=== PATIENT | female | born 1975 | race Caucasian/White ===

== ENCOUNTER → 2017-01-21 | Outpatient (CLI) | payer MEDICAID ==
[2014-04-04 09:03] VITALS: BP 109/67
[~2017-01-21] MED LIST: ENOX40DI SQ; PROP40TA PO; WARF7.5T48 PO
[2017-01-21 12:43] LABS: ALBUMIN 3.8 g/dL (3.4-5.0); ALBUMIN/GLOBULIN RATIO 1.1 (1.0-1.7); CALCIUM 8.9 mg/dL (8.5-10.1); CREATININE 0.8 mg/dL (0.6-1.0); GFR 79.9; POTASSIUM 3.9 mmol/L (3.5-5.1); TOTAL BILIRUBIN 0.4 mg/dL (0.2-1.0); TOTAL PROTEIN 7.4 g/dL (6.4-8.2)
[2017-01-22 05:16] LABS: HEMOGLOBIN A1C 4.6 % (4.8-5.6)
[2017-01-22 11:47] LABS: THYROID STIM HORMONE (TSH) 0.667 uIU/mL (0.358-3.740)
== END | disposition home or self-care (01) ==
LOC: LAB 11:46
PROVIDERS: ATTEND Nurse Practitioner
DX: E78.1 Pure hyperglyceridemia (principal); Z79.899 Other long term (current) drug therapy
CPT/HCPCS: 36415; 80053; 80061; 83036; 84443

== ENCOUNTER → 2017-05-25 | Outpatient (CLI) | payer MEDICAID, OTHER ==
[2014-04-04 09:03] VITALS: BP 109/67
== END | disposition home or self-care (01) ==
LOC: LAB 14:25
PROVIDERS: ATTEND Nurse Practitioner
DX: Z79.01 Long term (current) use of anticoagulants (principal)
CPT/HCPCS: 36415; 85610

== ENCOUNTER → 2017-08-10 | Outpatient (CLI) | payer OTHER ==
[2014-04-04 09:03] VITALS: BP 109/67
== END | disposition home or self-care (01) ==
LOC: LAB 12:10
PROVIDERS: ATTEND Nurse Practitioner
DX: Z51.81 Encounter for therapeutic drug level monitoring (principal); E78.1 Pure hyperglyceridemia; Z79.01 Long term (current) use of anticoagulants
CPT/HCPCS: 36415; 85610

== ENCOUNTER → 2017-11-02 | Outpatient (CLI) | payer OTHER ==
[2014-04-04 09:03] VITALS: BP 109/67
[2017-11-02 09:30] LABS: ALBUMIN 3.6 g/dL (3.4-5.0); CALCIUM 8.8 mg/dL (8.5-10.1); CREATININE 0.8 mg/dL (0.6-1.0); GFR 79.4; POTASSIUM 3.9 mmol/L (3.5-5.1); TOTAL BILIRUBIN 0.3 mg/dL (0.2-1.0); TOTAL PROTEIN 7.2 g/dL (6.4-8.2)
== END | disposition home or self-care (01) ==
LOC: LAB 08:44
PROVIDERS: ATTEND Nurse Practitioner
DX: E78.5 Hyperlipidemia, unspecified (principal); E78.1 Pure hyperglyceridemia; Z95.2 Presence of prosthetic heart valve
CPT/HCPCS: 36415; 80053; 80061

== ENCOUNTER → 2020-03-03 | Outpatient (CLI) | payer OTHER ==
[2014-04-04 09:03] VITALS: BP 109/67
== END ==
LOC: LAB 11:56
PROVIDERS: ATTEND Nurse Practitioner
DX: Z51.81 Encounter for therapeutic drug level monitoring (principal); Z79.01 Long term (current) use of anticoagulants
CPT/HCPCS: 36415; 85610

== ENCOUNTER → 2020-06-05 | Outpatient (CLI) | payer OTHER ==
[2014-04-04 09:03] VITALS: BP 109/67
== END ==
LOC: LAB 08:48
PROVIDERS: ATTEND Nurse Practitioner
DX: I35.9 Nonrheumatic aortic valve disorder, unspecified (principal); Z95.2 Presence of prosthetic heart valve
CPT/HCPCS: 36415; 85610

== ENCOUNTER → 2020-07-08 | Outpatient (CLI) | payer OTHER ==
[2014-04-04 09:03] VITALS: BP 109/67
[2020-07-08 15:31] LABS: ALBUMIN 3.7 g/dL (3.4-5.0); CALCIUM 8.7 mg/dL (8.5-10.1); CREATININE 0.8 mg/dL (0.6-1.0); GFR 78.7; POTASSIUM 4.2 mmol/L (3.5-5.1); TOTAL BILIRUBIN 0.4 mg/dL (0.2-1.0); TOTAL PROTEIN 7.3 g/dL (6.4-8.2)
== END ==
LOC: LAB 14:47
PROVIDERS: ATTEND Nurse Practitioner
DX: E78.2 Mixed hyperlipidemia (principal)
CPT/HCPCS: 36415; 80053; 80061

== ENCOUNTER → 2020-08-05 | Outpatient (CLI) | payer OTHER ==
[2014-04-04 09:03] VITALS: BP 109/67
== END ==
LOC: LAB 15:02
PROVIDERS: ATTEND Nurse Practitioner
DX: Z95.2 Presence of prosthetic heart valve (principal)
CPT/HCPCS: 36415; 85610

== ENCOUNTER → 2020-10-06 | Outpatient (CLI) | payer OTHER ==
[2014-04-04 09:03] VITALS: BP 109/67
== END ==
LOC: LAB 10:48
PROVIDERS: ATTEND Nurse Practitioner
DX: Z95.2 Presence of prosthetic heart valve (principal)
CPT/HCPCS: 36415; 85610

== ENCOUNTER → 2020-10-29 | Outpatient (CLI) | payer OTHER ==
[2014-04-04 09:03] VITALS: BP 109/67
== END ==
LOC: LAB 10:52
PROVIDERS: ATTEND Nurse Practitioner
DX: Z95.2 Presence of prosthetic heart valve (principal)
CPT/HCPCS: 36415; 85610

== ENCOUNTER → 2021-02-05 | Outpatient (CLI) | payer SELFPAY ==
[2014-04-04 09:03] VITALS: BP 109/67
== END ==
LOC: LAB 12:08
PROVIDERS: ATTEND Nurse Practitioner
DX: Z95.2 Presence of prosthetic heart valve (principal)
CPT/HCPCS: 36415; 85610

== ENCOUNTER 2021-03-17 20:29 | Emergency (ER) | payer SELFPAY ==
[~2021-03-17] VITALS: Ht 165.1 cm; Wt 80.7 kg
--- NOTE | 2021-03-17 20:48 | PHYS DOC ---
Past History Past Medical History: Hypertension Past Medical History Hemorrhoids Past Surgical History Aortic valve replacement x2-1999 and 2009 General Adult HPI: HPI: ".. I got a nose bleed...".. " I tremaine of get a lot since I ve been on coumadin...." Patient is a 45 year old female who presents with epistaxis. Bleeding primarily appears to be coming on the left side capsule back area. Patient has had periodic nosebleeds this winter. Patient is on Coumadin for her mechanical aortic valve. Her Coumadin is regulated by her canoe builder. Patient denies any trauma to the nose. No recent travel. No specific ill contacts. Bleed tonight initially started 1840 hrs. and has been continuous since that time. Patient states just that she checked and the bleeding stopped. Patient is not had any recent changes in Coumadin dosages. Has not taking any NSAIDs. Patient has not taken her night blood pressure meds as yet. Has past medical history of hypertension, hemorrhoids, anal tags, aortic valve replacement x2. Initial aortic valve replacement 1999 with pig and mechanical valve replacement in 2008. Review of Systems: Review of Systems: Constitutional: Denies fever or chills Eyes: Denies change in visual acuity HENT: Complains of epistaxis Respiratory: Denies cough or shortness of breath Cardiovascular: Denies chest pain or edema GI: Denies abdominal pain, nausea, vomiting, bloody stools or diarrhea : Denies dysuria Musculoskeletal: Denies back pain or joint pain Integument: Denies rash Neurologic: Denies headache, focal weakness or sensory changes Endocrine: Denies polyuria or polydipsia Lymphatic: Denies swollen glands Psychiatric: Denies depression or anxiety Family History: Family History: Noncontributory to presentation Current Medications: Current Meds: See nursing for home meds Allergies: Allergies: Allergies Coded Allergies Type Severity Reaction Last Updated Verified No Known Drug Allergies 04/04/14 No Physical Exam: PE: Constitutional: Moderate acute distress, non-toxic appearance. [] HENT: Normocephalic, atraumatic, bilateral external ears normal, oropharynx moist, no oral exudates, nose swollen turbinates. Clot over Kiesselbach area left side. No active bleeding down pharynx. Eyes: PERRLA, EOMI, conjunctiva normal, no discharge. [] Neck: Normal range of motion, no tenderness, supple, no stridor. [] Cardiovascular:Heart rate regular rhythm, aortic click. PMI to left. Lungs & Thorax: Bilateral breath sounds equal at apex on Auscultation []. Midline sternal scar Abdomen: Bowel sounds normal, soft, no tenderness, no masses, no pulsatile masses. Scar Skin: Warm, dry, no erythema, no rash. [] Back: No tenderness, no CVA tenderness. [] Extremities: No tenderness, no cyanosis, no clubbing, ROM intact, no edema. [] Neurologic: Alert and oriented X 3, normal motor function, normal sensory function, no focal deficits noted. [] Psychologic: Affect anxious, judgement normal, mood normal. [] EKG: EKG: [] Radiology/Procedures: Radiology/Procedures: [] Heart Score: C/O Chest Pain: N/A Risk Factors: Risk Factors: DM, Current or recent (<one month) smoker, HTN, HLP, family history of CAD, obesity. Risk Scores: Score 0 - 3: 2.5% MACE over next 6 weeks - Discharge Home Score 4 - 6: 20.3% MACE over next 6 weeks - Admit for Clinical Observation Score 7 - 10: 72.7% MACE over next 6 weeks - Early Invasive Strategies Course & Med Decision Making: Course & Med Decision Making Pertinent Labs and Imaging studies reviewed. (See chart for details) Procedure [id number] cleared with patient blowing nose. Sprayed a 50-50 mixture of Tony-Synephrine and cocaine to both nares.. Also application of small amount of bactracin ointment. Direct pressure applied. Patient also receive 0.2 of clonidine and a clonidine patch.0,2 Patient observed approximately 2 hours in the emergency department and no reoccurrence of nasal bleeding. Patient was found to have a elevated INR of 6.3. CBC and electrolytes stable. Patient instructed not to blow her nose but may sniff. Hold Coumadin for the next couple days. Call her canoe builder in the morning to make plan for restarting of Coumadin. Patient avoid NSAIDs. Patient to return if any concerns or recurrence of her bleeding. Avoid heavy lifting for the next couple days. Sleep with head elevated tonight. Have canoe builder review her hypertensive meds. Impression: 1. Epistaxis-left naris Kiesselbach area 2. Accelerated hypertension 3. Mechanical aortic valve-currently on Coumadin 4. Elevated INR 6.3 [] Dragon Disclaimer: Dragon Disclaimer: This electronic medical record was generated, in whole or in part, using a voice recognition dictation system. Departure Departure: Referrals: PCP,NO (PCP) [place] Disclaimer This chart was dictated in whole or in part using Voice Recognition software in a busy, high-work load, and often noisy Emergency Department environment. It may contain unintended and wholly unrecognized errors or omissions. Dragon Disclaimer This chart was dictated in whole or in part using Voice Recognition software in a busy, high-work load, and often noisy Emergency Department environment. It may contain unintended and wholly unrecognized errors or omissions. KIT HARRISON MD Mar 17, 2021 20:48
[2021-03-17] MEDS ORDERED: PHENYLEPHRINE 1% NASAL DROP 30ML BOTTLE. NS ONE (21:00)
[2021-03-17] MEDS ORDERED: COCAINE 4% TOPICAL SOLUTION. TP ONE (21:00)
[2021-03-17] MEDS ORDERED: BACITRACIN ZINC TOPICAL OINT PACKET. TP ONE (21:00)
[2021-03-17] MEDS ORDERED: cloNIDine TTS-2 1 PATCH PATCH TD ONE (21:09)
[2021-03-17] MEDS ORDERED: cloNIDine HCL 0.1 MG TABLET ONE (21:09)
[2021-03-17 21:36] LABS: BASO % 1 % (0-3); EOS # 0.1 x10^3/uL (0.0-0.7); EOS % 2 % (0-3); HEMATOCRIT 37.9 % (36.0-47.0); LYMPH # 2.3 x10^3/uL (1.0-4.8); LYMPH % 32 % (24-48); MEAN CORPUSCULAR HEMOGLOBIN 31 pg (25-35); MEAN CORPUSCULAR HGB CONC 34 g/dL (31-37); MEAN CORPUSCULAR VOLUME 89 fL (79-100); MONO # 0.7 x10^3/uL (0.0-1.1); MONO % 10 % (0-9); NEUT # 4.1 x10^3uL (1.8-7.7); NEUT % 56 % (31-73); PLATELET COUNT 287 x10^3/uL (140-400); RED BLOOD COUNT 4.28 x10^6/uL (3.50-5.40); WHITE BLOOD COUNT 7.3 x10^3/uL (4.0-11.0)
[2021-03-17 21:43] LABS: CALCIUM 8.5 mg/dL (8.5-10.1); CREATININE 0.8 mg/dL (0.6-1.0); GFR 78.3; POTASSIUM 3.5 mmol/L (3.5-5.1)
[2021-03-17 21:50] LABS: ALBUMIN 3.6 g/dL (3.4-5.0); DIRECT BILIRUBIN 0.1 mg/dL (0.0-0.2); TOTAL BILIRUBIN 0.2 mg/dL (0.2-1.0); TOTAL PROTEIN 7.3 g/dL (6.4-8.2)
[2021-03-17 22:27] VITALS: BP 149/94
== END 2021-03-17 22:28 | disposition home or self-care (01) ==
LOC: ER 20:29
DX: R04.0 Epistaxis (principal); I10 Essential (primary) hypertension; R79.89 Other specified abnormal findings of blood chemistry; Z79.01 Long term (current) use of anticoagulants
CPT/HCPCS: 36415; 80048; 80076; 85025; 85379; 85610; 85730; 99284

== ENCOUNTER → 2021-04-24 | Outpatient (CLI) | payer MEDICAID | LOC: LAB 11:11 | PROVIDERS: ATTEND Nurse Practitioner | DX: Z95.2 Presence of prosthetic heart valve (principal) | CPT/HCPCS: 36415; 85610 ==

== ENCOUNTER → 2021-05-11 | Outpatient (CLI) | payer MEDICAID | LOC: LAB 13:11 | PROVIDERS: ATTEND Nurse Practitioner | DX: Z95.2 Presence of prosthetic heart valve (principal) | CPT/HCPCS: 36415; 85610 ==